=== PATIENT | female | born 1990 ===

== ENCOUNTER 2023-05-27 13:15 | Inpatient (IN) | payer OTHER ==
[~2023-05-27] VITALS: Ht 157.5 cm; Wt 3.2 kg
[2023-06-11] MEDS ORDERED: PRENATAL TABLE1 EAC1 PO (11:41)
== END 2023-06-14 14:25 | disposition home or self-care (01) | DRG 788 ==
LOC: OB/GYN 06-09 13:15 → LDR 06-11 10:18 → OB/GYN 06-11 10:18
PROVIDERS: ADMIT Obstetrics & Gynecology; ATTEND Obstetrics & Gynecology
PROC: 4A1HXCZ Monitoring of Products of Conception, Cardiac Rate, External Approach (ICD-10-PCS; 2023-06-11)
PROC: 10D00Z1 Extraction of Products of Conception, Low, Open Approach (ICD-10-PCS; principal; 2023-06-11 21:00)
DX: O62.1 Secondary uterine inertia (principal); O32.6XX0 Maternal care for compound presentation, not applicable or unspecified; Z3A.40 40 weeks gestation of pregnancy; Z37.0 Single live birth; Z20.822 Contact with and (suspected) exposure to COVID-19

== ENCOUNTER 2023-06-03 11:09 | Outpatient (CLI) | payer OTHER | END 2023-06-03 12:30 | disposition home or self-care (01) | LOC: NST 11:09 | PROVIDERS: ATTEND Obstetrics & Gynecology | DX: Z34.83 Encounter for supervision of other normal pregnancy, third trimester (principal) ==

== ENCOUNTER 2023-06-08 12:57 | Outpatient (CLI) | payer OTHER | END 2023-06-08 15:34 | disposition home or self-care (01) | LOC: NST 12:57 | PROVIDERS: ATTEND Obstetrics & Gynecology | DX: Z34.83 Encounter for supervision of other normal pregnancy, third trimester (principal) ==

== ENCOUNTER 2023-06-11 09:18 | Outpatient (CLI) | payer OTHER ==
[2023-06-11] MEDS ORDERED: PRENATAL TABLE1 EAC1 PO (11:41)
== END 2023-06-11 10:15 | disposition home or self-care (01) ==
LOC: NST 09:18
PROVIDERS: ATTEND Obstetrics & Gynecology
DX: Z34.83 Encounter for supervision of other normal pregnancy, third trimester (principal)